=== PATIENT | female | born 1930 | race Hispanic/Latino ===

== ENCOUNTER 2019-04-10 08:27 | Observation (INO) | payer MEDICARE, OTHER ==
[2019-04-10] MEDS ORDERED: Meclizine HCl 25 MG TAB ONE ×2 (09:16)
[2019-04-10 09:18] LABS: #Basophils 0.1 thou/uL (0.0-0.2); #Eosinphils 0.2 thou/uL (0.0-0.7); #Lymphocytes 1.6 thou/uL (1.20-3.40); #Monocytes 0.4 thou/uL (0.11-0.59); #Neutrophils 3.1 thou/uL (1.40-6.50); %Basophils 1.3 % (0.0-1.0); %Eosinophils 3.4 % (0.0-10.0); %Lymphocytes 29.4 % (21.0-51.0); %Monocytes 7.9 % (0.0-10.0); Hemoglobin 13.8 g/dL (12.0-16.0); Mean Corpuscular HGB CONC 31.7 g/dL (32.0-36.0); Mean Corpuscular Hemoglobin 30.3 pg (27.0-31.0); Mean Corpuscular Volume 95.5 fL (78.0-98.0); Mean Platelet Volume 6.9 fL (7.4-10.4); Platelet Count 243 thou/uL (130-400); Red Blood Cell (RBC) Count 4.56 mill/uL (4.20-5.40); White Blood Cell (WBC) Count 5.4 thou/uL (4.8-10.8)
[2019-04-10 09:34] LABS: ALT (SGPT) 9 U/L (8-55); AST (SGOT) 12 U/L (5-34); Alkaline Phosphatase 73 U/L (40-110); Anion Gap 12 mmol/L (10-20); BUN (Urea Nitrogen) 24 mg/dL (9.8-20.1); Bilirubin, Total 0.5 mg/dL (0.2-1.2); Calc. Creatinine Clearance 0 mL/min (70-130); Calcium 9.3 mg/dL (7.8-10.44); Carbon Dioxide 28 mmol/L (23-31); Chloride 104 mmol/L (98-107); Estimated GFR-MDRD 69; Globulin 2.9 g/dL (2.4-3.5); Glucose 135 mg/dL (83-110); Lipase 10 U/L (8-78); Potassium 3.8 mmol/L (3.5-5.1); Protein, Total 6.9 g/dL (6.0-8.3); Sodium 140 mmol/L (136-145)
--- NOTE | 2019-04-10 09:47 | CT ---
CT BRAIN WITHOUT CONTRAST: HISTORY:Dizziness COMPARISON:08/09/2016 FINDINGS: There are foci of decreased attenuation in the periventricular white matter, consistent with chronic small vessel ischemic disease. No evidence of acute infarct, hemorrhage, midline shift or abnormal extra-axial fluid collections is seen. The ventricular size is appropriate and the basilar cisterns are patent. The bony calvarium is intact. The visualized paranasal sinuses and mastoid air cells are well aerated. IMPRESSION: No CT evidence of acute intracranial process.
--- NOTE | 2019-04-10 09:51 | RAD ---
SINGLE VIEW CHEST: Date: 04/10/19 COMPARISON: 09/05/08. HISTORY: Dizziness that started this morning. FINDINGS: Single view of the chest shows a normal sized cardiomediastinal silhouette. There is no evidence of c onsolidation, mass, or pleural effusion. Degenerative changes are seen in the spine and shoulders. IMPRESSION: No evidence of acute cardiopulmonary disease. POS: [facility]
[2019-04-10] MEDS ORDERED: Aspirin 325 MG TAB ONE (10:23)
--- NOTE | 2019-04-10 14:45 | HP ---
PRIMARY CARE PHYSICIAN: Unknown. CHIEF COMPLAINT: Dizziness. HISTORY OF PRESENT ILLNESS: This is an 88-year-old female, reliable historian, with past medical history of osteoarthritis, who presented to [facility] emergency room for 2 episodes of dizziness this morning with mild headaches, in the absence of nausea or vomiting, prompting evaluation. The patient reports going to bed early last night and awakening at 2:30 a.m. after having a bad dream. She states she walked into kitchen and did some house chores and felt find then and went back to sleep and reawoke at 4 a.m., and after getting up out of bed, experienced intense sensation of room spinning around, lasting approximately 1 minute in the absence of nausea, vomiting, confusion or motor or sensory symptoms. She reports making a cup of coffee, sitting in the kitchen table, and symptoms resolved. She reports prior similar symptoms with low blood pressures, which she generally runs at baseline. She went back to sleep and notes symptoms recurred at 7 a.m., associated with light headaches, in the absence of ear aches or tinnitus or recent illnesses or any motor or sensory symptoms. She lives with family and asked them to seek ER evaluation. In the ER, noncontrast head CT was unremarkable. The patient was administered aspirin 325 mg and oral meclizine 50 mg tablet. She notes that symptoms had already resolved upon arrival. A skew test was positive upon ER physician evaluation. The patient was admitted for further observation. Remainder of workup was unremarkable. At bedside, the patient corroborates history. She feels back to her baseline. She has been ambulatory without any discomfort. She denies current complains of headaches. Her blood pressures are normotensive. PAST MEDICAL HISTORY: Osteoarthritis. PAST SURGICAL HISTORY: 1. Cholecystectomy. 2. Partial hysterectomy. 3. Right shoulder repair. SOCIAL HISTORY: The patient lives at home with family. She is ambulatory without assistive device. She denies any tobacco or alcohol use. ALLERGIES: POSSIBLY TO CODEINE. REVIEW OF SYSTEMS: Peritenent positives as noted in HPI. Remainder of review of systems is negative. MEDICATIONS: Home medications were reviewed as per admission medication reconciliation. FAMILY HISTORY: The patient reports her mother from stomach cancer and her brother is still alive at age of 93, but has multiple medical comorbidities. PHYSICAL EXAMINATION: VITAL SIGNS: In the ER, temperature maximum is afebrile at 97.8, pulse 70 and in sinus rhythm, blood pressure 121/77, oxygen saturation 98% on room air, respirations 14 to 18 and unlabored. GENERAL APPEARANCE: This is an elderly female, who is awake, alert, oriented, coherent, lucid, not in any obvious distress. EYES: Pupils are equally round and reactive. Extraocular muscles are intact. No scleral icterus or conjunctival pallor. There is visualized horizontal nystagmus with lateral eye movement. HENT: Normocephalic and atraumatic. No facial asymmetry. Mucous membranes are moist. CARDIOVASCULAR SYSTEM: S1 and S2. Regular rate and rhythm. No harsh murmurs. No chest wall tenderness to palpation. LUNGS: Bilateral equal air entry, clear to auscultation. No wheezing or rales. Symmetrical chest expansion. ABDOMEN: Soft, nontender, and nondistended. EXTREMITIES: No lower extremity edema. SKIN: Warm to touch without rashes, pallor, or abrasion. NEUROLOGIC: No facial asymmetry. Symmetrical muscle with facial expression. There is noted horizontal nystagmus. There is no drift in the upper or lower extremities. 2+ hand organization development consultant intact. No obvious dysmetric. Gait was not assessed. LABORATORY DATA: WBC 5.4, hemoglobin and hematocrit 13.8/43.6, and platelets 243. Sodium 140, potassium 3.8, chloride 104, bicarb 28, glucose 116, BUN and creatinine 24/0.79. LFTs unremarkable. IMAGING STUDIES: One-view chest x-ray reveals no evidence of acute cardiopulmonary disease. Noncontrast head CT reveals no CT evidence of acute intracranial processes. Paranasal sinuses and mastoid air cells are well aerated. ASSESSMENT AND PLAN: 1. Acute onset of dizziness with unspecified etiology. The patient will be admitted as observation status and placed on telemetry monitoring for evaluation of primary central nervous system event vs peripheral vertigo. She has received empiric oral aspirin 325 mg in the ER and oral meclizine 50 mg in the ER. We will obtain MR brain without contrast to evaluate for posterior cerebrovascular accident. We will obtain PT and OT evaluations for gait assessment. We will obtain orthostatic vital signs and if positive start IVF. 2. Osteoarthritis. The patient is on home Celebrex. 3. Deep vein thrombosis prophylaxis with low molecular weight heparin. DISPOSITION: The patient will be admitted to observation status. Anticipate less than 24-hour stay. Job ID: [id number] [facility]
[2019-04-10 16:49] VITALS: BMI 31.8
--- NOTE | 2019-04-10 16:52 | MRI ---
MRI BRAIN WITHOUT CONTRAST: HISTORY: Acute dizziness. Horizontal nystagmus CORRELATION: CT scan from earlier today. FINDINGS: No restricted diffusion is seen. There are multiple foci of T2 prolongation in the periventricular wh ite matter, consistent with chronic small vessel ischemic disease. The ventricular size is appropriate and the basilar cisterns are patent. No evidence of acute infarct, hemorrhage, midline shift or abnormal extra-axial fluid collections is seen.The visualized paranasal sinuses and mastoid air cells are well-aerated. IMPRESSION: No evidence of acute intracranial process.
[2019-04-10 20:49] VITALS: BP 116/65
[2019-04-10 21:00] VITALS: TEMP 98.1
[2019-04-11] MEDS ORDERED: Aspirin 81 mg Enteric Coated Tablet PO SCH (09:00)
[2019-04-11] MEDS ORDERED: Enoxaparin Sodium 40 MG/0.4 ML SYRINGE SC SCH (09:00)
[2019-04-11] MEDS ORDERED: FLU VACC TS2019-20(65YR UP)/PF 180 MCG/0.5 ML SYRINGE IM ONE (17:15)
== END 2019-04-10 21:04 | disposition home or self-care (01) ==
LOC: ERS 08:27 → ERHOLD 12:12 → 2SE 16:02
PROVIDERS: ADMIT Hospitalist; ATTEND Hospitalist
DX: R42 Dizziness and giddiness (principal); R51 Headache; M19.90 Unspecified osteoarthritis, unspecified site; Z79.82 Long term (current) use of aspirin; Z88.5 Allergy status to narcotic agent
CPT/HCPCS: 70450; 70551; 71045; 80053; 82962; 83690; 84484; 85025; 93005; 99285; G0378 ×2; 36416; J8597